=== PATIENT | female | born 1950 | race Caucasian/White ===

== ENCOUNTER 2024-01-09 08:05 | Emergency (ER) | payer MEDICARE ==
[~2024-01-09] VITALS: Ht 162.6 cm; Wt 65.9 kg
[2024-01-09 08:15] VITALS: TEMP 98
[2024-01-09] MEDS: HYDROcodone/acetaminophen 5mg/325mg tablet PO ONE (08:48)
[2024-01-09] MEDS: ketorolac tromethamine 15mg/ml inj. IM ONE (09:19)
[2024-01-09] MEDS: TETanus/Pertussis (Acell)/Diphther VAC/PF (Tdap-Adult) 0.5ml syringe IMVAC ONE (09:21)
[2024-01-09] MEDS: LIDOcaine 1% 30ml preserv. free vial IJ STA (11:10)
[2024-01-09] MEDS ORDERED: CEPH-585 PO (12:32)
[2024-01-09] MEDS ORDERED: HYDR-3973 PO (12:32)
[2024-01-09 13:52] VITALS: BP 124/64; PULSE 68; RESP 16; O2SAT 98
== END 2024-01-09 14:02 | disposition home or self-care (01) ==
LOC: ER 08:06
DX: S61.210A Laceration without foreign body of right index finger without damage to nail, initial encounter (principal); Z79.2 Long term (current) use of antibiotics; Z79.899 Other long term (current) drug therapy; W19.XXXA Unspecified fall, initial encounter; Y93.89 Activity, other specified; Y92.89 Other specified places as the place of occurrence of the external cause; Y99.8 Other external cause status
CPT/HCPCS: 12001; 73110; 73130; 90715; 96372; 99284; A4565; A6222; A6258; A6449; G0008; J1885; J7030; Z7610; 90471

== ENCOUNTER 2024-12-21 19:40 | Emergency (ER) | payer MEDICARE ==
[~2024-12-21] VITALS: Ht 162.6 cm; Wt 71.1 kg
[~2024-12-21 19:40] MED LIST: CEPH-585 PO
[2024-12-21 20:27] LABS: BASOPHILS # (AUTO) 0.1 X10'3 (0-0.2); BASOPHILS % (AUTO) 0.8 % (0-1); EOSINOPHILS # (AUTO) 0.1 X10'3 (0-0.9); EOSINOPHILS % (AUTO) 1.3 % (0-6); HEMATOCRIT 40.9 % (35.0-45.0); LYMPHOCYTES % (AUTO) 44.5 % (21-51); MEAN CORPUSCULAR HEMOGLOBIN 31.2 PG (27.0-31.0); MEAN CORPUSCULAR HGB CONC 34.2 g/dL (33.0-36.5); MEAN CORPUSCULAR VOLUME 91.2 FL (78-98); MEAN PLATELET VOLUME 9.5 FL (7.4-10.4); MONOCYTES # (AUTO) 0.6 X10'3 (0-0.9); MONOCYTES % (AUTO) 8.9 % (2-12); NEUTROPHILS % (AUTO) 44.5 % (42-75); PLATELET COUNT 224 X10'3 (140-440); RED BLOOD COUNT 4.49 X10'6 (4.20-5.60); RED CELL DISTRIBUTION WIDTH 13.5 % (11.5-14.5); WHITE BLOOD COUNT 6.7 X10'3 (4.5-11.0)
[2024-12-21 20:41] LABS: ALANINE AMINOTRANSFERASE 29 U/L (12-78); ALBUMIN 3.7 G/DL (3.4-5.0); ALBUMIN/GLOBULIN RATIO 1.4 (1.1-1.5); ALKALINE PHOSPHATASE 119 IU/L (46-116); ANION GAP 7 (8-16); ASPARTATE AMINO TRANSFERASE 20 U/L (10-37); BILIRUBIN,TOTAL 0.3 MG/DL (0.1-1.0); BLOOD UREA NITROGEN 17 MG/DL (7-18); BUN/CREATININE RATIO 17.5 (10.0-20.0); CALCIUM 9.1 MG/DL (8.5-10.1); CHLORIDE 103 MMOL/L (99-107); CREATININE 0.97 MG/DL (0.40-0.90); GLUCOSE 117 MG/DL (70-104); POTASSIUM 4.4 MMOL/L (3.5-5.1); SODIUM 140 MMOL/L (135-145); TOTAL CARBON DIOXIDE 29.9 MMOL/L (24-32); TOTAL PROTEIN 6.4 G/DL (6.4-8.2); eCRCL 45 ML/MIN; eGFR 56 ML/MIN
[2024-12-21 20:48] LABS: PRO BRAIN NATRIURETIC PEPTIDE 312 PG/ML (0-125)
--- NOTE | 2024-12-21 20:54 | RADIOLOGY REPORT ---
CHEST RADIOGRAPH Indication: CP Technique: Single frontal view of the chest was obtained COMPARISON: None FINDINGS: Lines and Tubes: None Lungs: Clear Pleura: No effusion. No pneumothorax. Cardiomediastinal contours: Unremarkable IMPRESSION: No abnormality demonstrated.
--- NOTE | 2024-12-22 00:14 | Physician Documentation ---
History of Present Illness ~ Chief Complaint: Mechanical Fall Stated Complaint: FELL HURT RIBS Time Seen by MD: 00:13 Primary Medical Doctor: Reji DE JESUS Patient presents to the emergency room for evaluation after a fall. She was walking her dog when she suddenly fell striking her chest and right shoulder. She does endorse hitting her right cheek. No loss of consciousness or vomiting. She is not on blood thinners Tetanus within 5 Years?: Yes Medication Reconciliation Allergies: Coded Allergies: No Known Allergies (Unverified , 12/21/24) Scheduled Cephalexin*Monohydrate* (Keflex*), 2 CAP PO BID Past Medical History Past Medical History: No Pertinent History Review of Systems ROS All review of systems negative except as per HPI Physical Exam Vital Signs: Temperature: 98.0, Source: Oral, Heart Rate: 68, Respiratory Rate: 16, BP: 163/63, Pulse Oximetry: 97, Weight: 71.100 Oxygen Flow Rate: 0 Physical Exam General: Patient is awake, alert, oriented x4 in no acute distress and well appearing.~ Head: Normocephalic with no objective evidence of trauma to face or head Eyes: Conjunctival normal. EOMI. PERRL. ENT: Mucous membranes moist. No hemotympanum no hebert signs no raccoon eyes no rhinorrhea Neck: Supple, trachea is midline. No cervical midline tenderness Chest: Clear to auscultation bilaterally without rales, rhonchi, or wheezes. There is no accessory muscle use or retractions. Cardiac: RRR without murmurs, gallops, or rubs. Abd: Soft, nondistended, nontender, with normoactive bowel sounds. No guarding, rebound, or rigidity. Extremities: Normal strength. Normal range of motion. No deformities or edema. No abrasions Progress Results/Orders Results/Orders Orders - LUIS GUZMAN MD Chest,Single View (12/21/24 20:44) Monitor (12/21/24 20:17) Saline Lock (12/21/24 20:17) Oxygen (12/21/24 20:17) Electrocardiogram (12/21/24 20:17) Completed Orders - LUIS GUZMAN MD Chest,Single View (12/21/24 20:44) Cbc/Diff (12/21/24 20:17) PBNP (12/21/24 20:17) CMP (12/21/24 20:17) Hs Troponin I W Calculations (12/21/24 20:17) Vital Signs 12/21/24 20:11 Temp 98.0 Pulse 68 Resp 16 B/P (MAP) 163/63 Pulse Ox 97 O2 Flow Rate 0 Laboratory Tests Test 12/21/24 20:21 White Blood Count 6.7 Red Blood Count 4.49 Hemoglobin 14.0 Hematocrit 40.9 Mean Corpuscular Volume 91.2 Mean Corpuscular Hemoglobin 31.2 H Mean Corpuscular Hemoglobin Concent 34.2 Red Cell Distribution Width 13.5 Platelet Count 224 Mean Platelet Volume 9.5 Neutrophils (%) (Auto) 44.5 Lymphocytes (%) (Auto) 44.5 Monocytes (%) (Auto) 8.9 Eosinophils (%) (Auto) 1.3 Basophils (%) (Auto) 0.8 Neutrophils # (Auto) 3.0 Lymphocytes # (Auto) 3.0 Monocytes # (Auto) 0.6 Eosinophils # (Auto) 0.1 Basophils # (Auto) 0.1 CBC Comment Sodium Level 140 Potassium Level 4.4 Chloride Level 103 Carbon Dioxide Level 29.9 Anion Gap 7 L Blood Urea Nitrogen 17 Creatinine 0.97 H Estimated GFR/1.73 m2 56 BUN/Creatinine Ratio 17.5 Glucose Level 117 H Calcium Level 9.1 Total Bilirubin 0.3 Aspartate Amino Transf (AST/SGOT) 20 Alanine Aminotransferase (ALT/SGPT) 29 Alkaline Phosphatase 119 H Troponin I High Sensitivity 4 Pro-B-Type Natriuretic Peptide 312 H Total Protein 6.4 Albumin 3.7 Globulin 2.7 Albumin/Globulin Ratio 1.4 Chemistry Comments EKG/XRAY/CT/US/VASC/MRI EKG : Additional Comment EKG interpreted by myself shows time of 2025, rate 71, sinus rhythm, normal axis, no ST changes Chest X-Ray : Additional Comments Exam: CHEST,SINGLE VIEW CHEST RADIOGRAPH Indication: CP Technique: Single frontal view of the chest was obtained COMPARISON: None FINDINGS: Lines and Tubes: None Lungs: Clear Pleura: No effusion. No pneumothorax. Cardiomediastinal contours: Unremarkable IMPRESSION: No abnormality demonstrated. Medical Decision Making Findings Patient presents to the emergency room for evaluation after a fall. Differentials include but are not limited to fractures, dislocations, intracranial bleed, soft tissue injury, ACS therefore EKG and chest x-ray ordered. EKGs reassuring and patient's chest pain was instigated from the fall and he had not feel she requires labs for investigation into possible ACS. Chest x-ray is reassuring for no fractures or pneumothorax and I do not see a fracture on her right shoulder on chest x-ray although entirety of shoulder is not visualized she is able to move foot with full range of motion and he had not feel a dedicated x-ray to her shoulders warranted. No objective evidence of head trauma and she is not on any blood thinners and no red flags and he had not feel she requires a CT scan. Rice therapy discussed. Departure Disposition: HOME / SELF CARE / HOMELESS Impression: Primary Impression: Fall Condition: Stable Discharge Instructions: Fall Prevention in the Home, Adult, [id number] Additional Instructions: You may take ibuprofen and Tylenol for any aches/pains. Ice may be of benefit with frostbite precautions. Referrals: NO PRIMARY CARE PROVIDER (PCP) Signature Scribe Signature: No scribe Attestation: The note accurately reflects work and decisions made by me.Luis Guzman MD 12/22/24 00:23 LUIS GUZMAN MD December 22, 2024 00:14
[2024-12-22 00:39] VITALS: BP 143/59; PULSE 76; RESP 16; TEMP 98.4; O2SAT 97
--- NOTE | 2024-12-22 06:08 | ELECTROCARDIOGRAPH REPORT ---
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 Rodolfo Murrell Measurements Intervals [place] Rate: 71 P: 15 OR: 145 QRS: 10 QRSD: 92 T: 15 QT: 401 QTc: 436 Interpretive Statements Sinus rhythm Low voltage, precordial leads RSR' in V1 or V2, probably normal variant Electronically Signed On 12-22-2024 6:32:[address] Rodolfo Murrell Please click the below link to view image of tracing.
== END 2024-12-22 00:42 | disposition home or self-care (01) ==
LOC: ER 19:41
DX: Z04.1 Encounter for examination and observation following transport accident (principal); W19.XXXA Unspecified fall, initial encounter; Y93.K1 Activity, walking an animal; Y92.89 Other specified places as the place of occurrence of the external cause; Y99.8 Other external cause status
CPT/HCPCS: 36415; 71045; 80053; 83880; 84484; 85025; 93005; 99285